=== PATIENT | female | born 1945 | race Caucasian/White ===

== ENCOUNTER → 2016-08-22 | Outpatient (CLI) | payer MEDICARE ==
[~2016-08-22] MED LIST: AMARYL PO; AMLODIPINE BESYL5 MG PO; ATENOLOL PO; ATENOLOL50 MG PO; CIPRO PO; FLAGYL PO; LISINOPRIL PO; LISINOPRIL-HCTZ1 T14 PO; NORVASC PO; OMEPRAZOLE20 M1 PO; PHENERGAN PO; PRAVACHOL PO; VICTOZA0.6 MG/0.1 SQ; ZYLOPRIM100 MG PO
--- NOTE | ~2016-08-22 | CT57 ---
[facility] A Service of [facility] & [facility] RADIOLOGY TEXT RESULTS PATIENT: EVELIA MCKEON [facility] UN[facility] #: [id number] AGE: [address]: Christen Meneses MD SEX: F ORDER DR: [id number] [facility] [address] [place], [place] [address] [id number] O MR#: [id number] [facility] #: [id number] NAME: EVELIA MCKEON : 1945 SEX: F STUDY DATE/TIME: 08/22/2016 15:13 UNIT: [facility] ROOM: STUDY DESCRIPTION: CT Chest Wo Cont Attending Physician: Christen Meneses M.D. Ordering Physician: Christen Meneses M.D. Primary Care Physician: Ferny Argueta M.D. MEDICAL IMAGING REPORT This report is preliminary unless electronic signature is present EXAM CT chest without contrast 08/22/2016 HISTORY Dyspnea and persistent cough for 3 weeks. Patient states abnormal chest x-ray in family doctor's office approximately 6 days ago. History of lung nodule. Hypertension. COMPARISON CT chest without contrast 02/13/2012. Our clerical staff has contacted the office of the referring physician, and states that the doctors office only had office notes. The previous outside chest x-ray and x-ray report location is therefore unknown, with the written notes documenting questionable left lower lobe lingular infiltrate. AP portable chest 06/10/2015. PROCEDURE 5 mm noncontrast axial images through the chest. Sagittal and coronal reformatted images were obtained. This CT examination was performed with one or more of the following radiation dose reduction techniques: automatic exposure control, adjustment of mA and/or kV according to patient size, and iterative reconstruction. FINDINGS Tiny scattered noncalcified nodules seen within both lungs appear stable since 02/13/2012, in keeping with benign findings. Subpleural interstitial fibrosis changes are present within both lungs without zonal dominance, without evidence of significant progression since the 02/13/2012 exam. More focal peripheral interstitial fibrotic change or scarring in the inferior left upper lobe/lingula is not thought to be significantly STS. [facility] A Service of [facility] & [facility] RADIOLOGY TEXT RESULTS PATIENT: EVELIA MCKEON LOCATION: [facility] : 45 UNIT #: [id number] AGE: [address]: Christen Meneses MD SEX: F ORDER DR: changed from prior 2012 examination. No pathologic adenopathy. Stable borderline to mild cardiac enlargement. No pericardial effusion. No pleural effusion. Thyroid gland size within normal limits. Included portions of the upper abdominal organs are within normal limits. Degenerative changes in the spine. No acute or suspicious osseous abnormalities are evident. IMPRESSION 1. No acute chest findings. 2. Scattered small noncalcified bilateral pulmonary nodules are stable since 2011 in keeping with benign findings. No further followup is warranted. 3. Mild peripheral interstitial fibrosis throughout both lungs, without appreciable change since 02/13/2012. Dictated by... Trish Keys M.D. THIS IS AN ELECTRONICALLY VERIFIED REPORT Trish Kesy M.D. at 08/24/2016 7:11 AM [email or web address] TD: 08/23/2016 10:21 JOB #: [id number] MEDICAL IMAGING REPORT Page 1 of 1 COPY
== END | disposition home or self-care (01) ==
LOC: CCAT 14:27
DX: R05 Cough (principal); R06.00 Dyspnea, unspecified; R93.8 Abnormal findings on diagnostic imaging of other specified body structures; J84.10 Pulmonary fibrosis, unspecified; R91.8 Other nonspecific abnormal finding of lung field
CPT/HCPCS: 71250

== ENCOUNTER → 2016-09-20 | Outpatient (CLI) | payer MEDICARE | END | disposition home or self-care (01) | LOC: CECH 13:14 | DX: R06.02 Shortness of breath (principal); I51.89 Other ill-defined heart diseases; R06.00 Dyspnea, unspecified | CPT/HCPCS: 93306 ==